=== PATIENT | female | born 1985 | race Caucasian/White ===

== ENCOUNTER 2020-10-15 14:35 | Emergency (ER) | payer MEDICAID ==
[~2020-10-15] VITALS: Ht 157.5 cm; Wt 59.1 kg
[2020-10-15 14:45] VITALS: BP 133/84
== END 2020-10-15 15:00 ==
LOC: EMS 14:41
DX: F15.10 Other stimulant abuse, uncomplicated (principal); R00.2 Palpitations
CPT/HCPCS: 93005; 99283

== ENCOUNTER 2020-12-22 22:22 | Emergency (ER) | payer MEDICAID ==
[~2020-12-22] VITALS: Ht 157.5 cm; Wt 59.1 kg
[2020-12-22 22:32] VITALS: BP 138/94
== END 2020-12-23 00:30 | disposition left against medical advice (07) ==
LOC: EMS 22:24
DX: F41.9 Anxiety disorder, unspecified (principal); Z53.21 Procedure and treatment not carried out due to patient leaving prior to being seen by health care provider

== ENCOUNTER 2021-02-23 04:50 | Emergency (ER) | payer MEDICAID ==
[~2021-02-23] VITALS: Ht 157.5 cm; Wt 63.6 kg
[2021-02-23 05:28] LABS: BASOPHILS % (AUTO) 0.7 % (0.0-2.0); EOSINOPHILS % (AUTO) 1.1 % (1.0-6.0); HEMATOCRIT 39.3 % (36-46); HEMOGLOBIN 13.1 g/dL (12.0-16.0); LYMPHOCYTES # (AUTO) 1.5 K/uL (1.0-4.8); LYMPHOCYTES % (AUTO) 11.3 % (22.0-44.0); MEAN CORPUSCULAR HEMOGLOBIN 30.1 pg (26.0-34.0); MEAN CORPUSCULAR HGB CONC 33.2 G/dL (31.0-37.0); MEAN CORPUSCULAR VOLUME 91 fL (80-100); MONOCYTES # (AUTO) 0.7 K/uL (0.1-1.0); NEUTROPHILS # (AUTO) 11.1 K/uL (1.8-7.7); NEUTROPHILS % (AUTO) 81.9 % (40.0-70.0); PLATELET COUNT (AUTO) 349 K/uL (150-450); RED BLOOD CELL COUNT(AUTO) 4.34 MIL/uL (4.00-5.20); RED CELL DISTRIBUTION WIDTH 12.9 % (11.5-14.5)
[2021-02-23 05:38] LABS: ANION GAP 7 mmol/L (8-16); CALCIUM, TOTAL 9.4 mg/dL (8.8-10.5); CARBON DIOXIDE 28 mmol/L (22-29); CHLORIDE 102 mmol/L (98-107); CREATININE 0.88 mg/dL (0.60-1.30); GLOMERULAR FILTR. RATE CALC > 60 mL/min (>60); GLUCOSE,RANDOM 137 mg/dL (70-110); POTASSIUM 3.7 mmol/L (3.5-5.1); SODIUM SERUM 137 mmol/L (136-145); UREA NITROGEN, BLOOD 10 mg/dL (7-18)
[2021-02-23 05:43] LABS: AMPHET/METH SCREEN,URINE POSITIVE (NEGATIVE); BARBITURATE SCREEN, URINE NEGATIVE (NEGATIVE); BENZODIAZEPINES SCREEN,URINE NEGATIVE (NEGATIVE); CANNABINOID SCREEN,URINE POSITIVE (NEGATIVE); COCAINE SCREEN,URINE NEGATIVE (NEGATIVE); METHADONE SCREEN, URINE NEGATIVE (NEGATIVE); OPIATE SCREEN,URINE NEGATIVE (NEGATIVE)
[2021-02-23 05:44] LABS: ALANINE AMINOTRANSFERASE 64 U/L (12-78); ALBUMIN 3.2 g/dL (3.4-5.0); ALKALINE PHOSPHATASE 94 U/L (46-116); ASPARTATE AMINOTRANSFERASE 32 U/L (15-37); BILIRUBIN,TOTAL 0.3 mg/dL (0.1-1.0); LIPASE 104 U/L (73-393); TOTAL PROTEIN, SERUM 7.9 g/dL (6.4-8.2)
[2021-02-23 05:51] LABS: APPEARANCE,URINE CLEAR (CLEAR); BILIRUBIN,URINE NEGATIVE (NEGATIVE); GLUCOSE, URINE (UA) NEGATIVE (NEGATIVE); KETONES,URINE NEGATIVE (NEGATIVE); LEUKOCYTE ESTERASE ,URINE MODERATE (NEGATIVE); NITRATE,URINE NEGATIVE (NEGATIVE); OCCULT BLOOD,URINE NEGATIVE (NEGATIVE); PROTEIN,URINE POS 1+ (NEGATIVE); UROBILINOGEN,URINE 0.2 mg/dL (<=1.0)
[2021-02-23 05:54] LABS: PHENCYCLIDINE SCREEN,URINE NEGATIVE (NEGATIVE)
[2021-02-23 06:01] LABS: SQUAMOUS EPITHELIAL CELL,UR Few /LPF (None Seen)
[2021-02-23 06:02] LABS: BACTERIA,URINE Rare /HPF (None Seen); RBC,URINE None Seen /HPF (0-2)
[2021-02-23] MEDS ORDERED: ACETAMINOPHEN 500 MG TABLET PO ONE (06:15)
[2021-02-23] MEDS ORDERED: CEPHALEXIN MONOHYDRATE 500 MG CAPSULE PO ONE (06:45)
[2021-02-23 07:33] LABS: COVID AG,FIA SOURCE NASOPHARYNGEAL
[2021-02-23] MEDS ORDERED: IOHEXOL 350 MG/ML 100 ML VIAL ONE (08:52)
[2021-02-23] MEDS ORDERED: SODIUM CHLORIDE 0.9% 100 ML ONE (08:52)
[2021-02-23 09:15] VITALS: BP 131/78
== END 2021-02-23 10:06 | disposition home or self-care (01) ==
LOC: EMS 04:51
DX: S30.1XXA Contusion of abdominal wall, initial encounter (principal); F15.10 Other stimulant abuse, uncomplicated; F17.210 Nicotine dependence, cigarettes, uncomplicated; F12.90 Cannabis use, unspecified, uncomplicated; F41.9 Anxiety disorder, unspecified; F32.9 Major depressive disorder, single episode, unspecified; Z20.822 Contact with and (suspected) exposure to COVID-19; Y04.2XXA Assault by strike against or bumped into by another person, initial encounter; Y93.89 Activity, other specified; Y92.89 Other specified places as the place of occurrence of the external cause; Y99.8 Other external cause status
CPT/HCPCS: 36415; 71045; 71260; 74176; 74177; 80053; 80307; 81001; 81025; 83690; 84703; 85025; 87086; 87426; 99285; G0480; J7050; Q9967; 72193; 74160

== ENCOUNTER 2021-07-16 07:43 | Emergency (ER) | payer MEDICAID ==
[~2021-07-16] VITALS: Ht 157.5 cm; Wt 63.6 kg
[2021-07-16] MEDS ORDERED: PredniSONE 20 MG TABLET PO ONE (08:15)
[2021-07-16] MEDS ORDERED: CLINDAMYCIN 300 MG/D5% WATER 50 ML IV ONE (08:15)
[2021-07-16] MEDS ORDERED: ALBUTEROL SULFATE 2.5 MG/0.5 ML NEB SOLUTION NEB ONE (08:15)
[2021-07-16 08:32] LABS: BASOPHILS % (AUTO) 0.2 % (0.0-2.0); EOSINOPHILS % (AUTO) 6.9 % (1.0-6.0); HEMATOCRIT 37.7 % (36-46); HEMOGLOBIN 12.9 g/dL (12.0-16.0); LYMPHOCYTES # (AUTO) 1.2 K/uL (1.0-4.8); MEAN CORPUSCULAR HEMOGLOBIN 30.7 pg (26.0-34.0); MEAN CORPUSCULAR HGB CONC 34.1 G/dL (31.0-37.0); MEAN CORPUSCULAR VOLUME 90 fL (80-100); MONOCYTES # (AUTO) 0.8 K/uL (0.1-1.0); MONOCYTES % (AUTO) 10.3 % (2.0-9.0); NEUTROPHILS # (AUTO) 5.5 K/uL (1.8-7.7); NEUTROPHILS % (AUTO) 67.6 % (40.0-70.0); PLATELET COUNT (AUTO) 237 K/uL (150-450); RED BLOOD CELL COUNT(AUTO) 4.18 MIL/uL (4.00-5.20); RED CELL DISTRIBUTION WIDTH 13.4 % (11.5-14.5)
[2021-07-16 08:40] LABS: ANION GAP 8 mmol/L (8-16); CALCIUM, TOTAL 8.1 mg/dL (8.8-10.5); CARBON DIOXIDE 25 mmol/L (22-29); CHLORIDE 98 mmol/L (98-107); CREATININE 0.84 mg/dL (0.60-1.30); GLOMERULAR FILTR. RATE CALC > 60 mL/min (>60); GLUCOSE,RANDOM 126 mg/dL (70-110); POTASSIUM 3.5 mmol/L (3.5-5.1); SODIUM SERUM 131 mmol/L (136-145); UREA NITROGEN, BLOOD 12 mg/dL (7-18)
[2021-07-16 08:46] LABS: ALANINE AMINOTRANSFERASE 102 U/L (12-78); ALBUMIN 2.8 g/dL (3.4-5.0); ALKALINE PHOSPHATASE 105 U/L (46-116); ASPARTATE AMINOTRANSFERASE 53 U/L (15-37); BILIRUBIN,TOTAL 0.2 mg/dL (0.1-1.0); TOTAL PROTEIN, SERUM 7.1 g/dL (6.4-8.2)
[2021-07-16] MEDS ORDERED: CLIN-142 PO (09:40)
[2021-07-16] MEDS ORDERED: PRED-554 PO (09:41)
[2021-07-16] MEDS ORDERED: ALBU8.5H8 IH (09:42)
[2021-07-16] MEDS ORDERED: PERM60CR19 TP (09:44)
[2021-07-16 10:00] VITALS: BP 131/71
== END 2021-07-16 10:09 | disposition home or self-care (01) ==
LOC: EMS 07:46
DX: L03.114 Cellulitis of left upper limb (principal); L30.9 Dermatitis, unspecified; B86 Scabies; F17.210 Nicotine dependence, cigarettes, uncomplicated; F19.90 Other psychoactive substance use, unspecified, uncomplicated
CPT/HCPCS: 36415; 73090; 80053; 84703; 85025; 94640; 96365; 99284; J3490; J7512

== ENCOUNTER 2023-04-15 11:44 | Emergency (ER) | payer MEDICAID, OTHER ==
[~2023-04-15] VITALS: Ht 167.6 cm; Wt 70.5 kg
[~2023-04-15 11:44] MED LIST: ALBU8.5H8 IH; CLIN-142 PO; PERM60CR19 TP; PRED-554 PO
[2023-04-15 11:56] VITALS: TEMP 98
[2023-04-15] MEDS: CLINDAMYCIN HCL 150 MG CAPSULE PO ONE (14:53)
[2023-04-15] MEDS: PERTUSS(ACELL),DIPH,TET VAC/PF 0.5 ML SYRINGE IM. ONE (14:54)
[2023-04-15] MEDS: BACITRACIN 28 GM OINTMENT TP ONE (15:52)
[2023-04-15 17:15] VITALS: BP 128/72; PULSE 86; RESP 18
[2023-04-15] MEDS ORDERED: [UNRECOGNIZED DRUG - CODE] PO (17:31)
== END 2023-04-15 17:34 | disposition home or self-care (01) ==
LOC: EMS 11:46
DX: S90.414A Abrasion, right lesser toe(s), initial encounter (principal); S30.810A Abrasion of lower back and pelvis, initial encounter; L03.011 Cellulitis of right finger; F17.210 Nicotine dependence, cigarettes, uncomplicated; F15.90 Other stimulant use, unspecified, uncomplicated; W22.8XXA Striking against or struck by other objects, initial encounter; Y93.89 Activity, other specified; Y92.89 Other specified places as the place of occurrence of the external cause; Y99.8 Other external cause status
CPT/HCPCS: 84703; 90471; 90715; 99284

== ENCOUNTER 2023-04-19 21:29 | Emergency (ER) | payer OTHER ==
[~2023-04-19] VITALS: Ht 157.5 cm; Wt 78.6 kg
[~2023-04-19 21:29] MED LIST changes: -ALBU8.5H8 IH; -PERM60CR19 TP; -PRED-554 PO; +[UNRECOGNIZED DRUG - CODE] PO
[2023-04-19 21:59] VITALS: BP 134/73; PULSE 99; RESP 16; TEMP 98.1
== END 2023-04-19 23:04 | disposition home or self-care (01) ==
LOC: EMS 21:36
DX: S90.934D Unspecified superficial injury of right lesser toe(s), subsequent encounter (principal); F17.210 Nicotine dependence, cigarettes, uncomplicated; F15.90 Other stimulant use, unspecified, uncomplicated; Z13.9 Encounter for screening, unspecified; X58.XXXD Exposure to other specified factors, subsequent encounter
CPT/HCPCS: 99281; Z7502

== ENCOUNTER 2023-10-29 01:35 | Emergency (ER) | payer OTHER ==
[~2023-10-29] VITALS: Ht 157.5 cm; Wt 72.7 kg
[2023-10-29 01:42] VITALS: TEMP 98.3
[2023-10-29] MEDS: LIDOCAINE 1% 10 ML VIAL SQ ONE (03:35)
[2023-10-29] MEDS: CLINDAMYCIN PHOS 150 MG/ML 4 ML VIAL IM ONE (03:59)
[2023-10-29 04:51] VITALS: BP 110/64; PULSE 85; RESP 18; O2SAT 97
== END 2023-10-29 05:14 | disposition home or self-care (01) ==
LOC: EMS 01:35
DX: L02.01 Cutaneous abscess of face (principal); F41.9 Anxiety disorder, unspecified; J45.909 Unspecified asthma, uncomplicated; F17.210 Nicotine dependence, cigarettes, uncomplicated; F12.90 Cannabis use, unspecified, uncomplicated; F15.90 Other stimulant use, unspecified, uncomplicated; F10.90 Alcohol use, unspecified, uncomplicated; Y90.9 Presence of alcohol in blood, level not specified
CPT/HCPCS: 99283; 10060; 96372; J3490 ×2

== ENCOUNTER → 2024-08-07 | Emergency (ER) | payer MEDICAID, OTHER ==
[~2024-08-07] VITALS: Ht 162.6 cm; Wt 72.7 kg
[~2024-08-07] MED LIST changes: +BACI28.410 TP; +CEPH-558 PO; +OLAN5TAB52 PO
[2024-08-07] MEDS: LORazepam 1 MG TABLET PO ONE (04:06)
[2024-08-07] MEDS: BACITRACIN 0.9 GM PACKET OINTMENT TP ONE (04:06)
[2024-08-07] MEDS: haloperidoL 5 MG TABLET PO ONE (04:06)
[2024-08-07 04:09] VITALS: BP 121/94; PULSE 98; RESP 18; TEMP 98.8; O2SAT 100
== END | disposition still patient (30) ==
LOC: EMS 06:04
DX: F15.10 Other stimulant abuse, uncomplicated (principal); L30.9 Dermatitis, unspecified; J45.909 Unspecified asthma, uncomplicated; F41.9 Anxiety disorder, unspecified; F17.210 Nicotine dependence, cigarettes, uncomplicated; F12.90 Cannabis use, unspecified, uncomplicated; Z79.1 Long term (current) use of non-steroidal anti-inflammatories (NSAID); Z79.899 Other long term (current) drug therapy; Y90.9 Presence of alcohol in blood, level not specified
CPT/HCPCS: 99284; Z7502; Z7610

== ENCOUNTER 2025-03-02 04:14 | Emergency (ER) | payer MEDICAID, OTHER ==
[~2025-03-02] VITALS: Ht 167.6 cm; Wt 77.3 kg
[2025-03-02 04:19] VITALS: TEMP 97.8
[2025-03-02 06:30] LABS: PLATELET COUNT (AUTO) 184 K/uL (150-450); RED BLOOD CELL COUNT(AUTO) 4.15 MIL/uL (4.00-5.20); RED CELL DISTRIBUTION WIDTH 12.3 % (11.5-14.5); WHITE BLOOD COUNT (AUTO) 8.9 K/uL (4.5-11.0)
[2025-03-02 06:50] LABS: CALCIUM, TOTAL 8.6 mg/dL (8.8-10.5); CREATININE 1.23 mg/dL (0.60-1.30); GLOMERULAR FILTR. RATE CALC 48.0 mL/min (>60); GLUCOSE,RANDOM 101.0 mg/dL (70-110); SODIUM SERUM 131.0 mmol/L (136-145); UREA NITROGEN, BLOOD 16.0 mg/dL (7-18)
[2025-03-02] MEDS: POTASSIUM CHLORIDE 20 MEQ ER TABLET PO ONE (07:16)
[2025-03-02] MEDS: POTASSIUM CHL 10 MEQ/WATER 50 ML IV ONE (07:35)
[2025-03-02] MEDS: SODIUM CHLORIDE 0.9% 1,000 ML IV ONE (07:40)
[2025-03-02 07:55] LABS: BAND NEUTROPHILS % (MANUAL) 11 % (0-5); LYMPHOCYTES % (MANUAL) 5 % (22-44); MONOCYTES % (MANUAL) 7 % (2-9); SEGMENTED NEUTROPHILS % 77 % (40-70)
[2025-03-02 08:11] LABS: COVID AG,FIA SOURCE NASAL SWAB
[2025-03-02 08:32] LABS: SARS-COV2 (COVID) ANTIGEN,FIA Negative (Negative)
[2025-03-02 11:00] VITALS: BP 131/81; PULSE 97; RESP 20; O2SAT 99
[2025-03-02] MEDS: ACETAMINOPHEN 500 MG TABLET PO ONE (12:51)
== END 2025-03-02 13:13 | disposition home or self-care (01) ==
LOC: EMS 04:14
DX: F15.90 Other stimulant use, unspecified, uncomplicated (principal); F12.90 Cannabis use, unspecified, uncomplicated; F17.210 Nicotine dependence, cigarettes, uncomplicated; F10.90 Alcohol use, unspecified, uncomplicated; F41.9 Anxiety disorder, unspecified; J45.909 Unspecified asthma, uncomplicated; Z79.1 Long term (current) use of non-steroidal anti-inflammatories (NSAID); Z79.899 Other long term (current) drug therapy; Z20.822 Contact with and (suspected) exposure to COVID-19; Y90.9 Presence of alcohol in blood, level not specified
CPT/HCPCS: 99284; 96365; 87426; 80048; 84703; 85025; G0480; J3480